=== PATIENT | female | born 1955 | race African-American/Black ===

== ENCOUNTER → 2021-06-12 09:24 | Outpatient (BNVA) | payer MEDICARE, MEDICAID, SELFPAY | PROVIDERS: PCP Internal Medicine; Visit Provider Psychiatry & Neurology Neurology | DX: F39 Unspecified mood [affective] disorder (principal); F09 Unspecified mental disorder due to known physiological condition; G47.00 Insomnia, unspecified | CPT/HCPCS: 99212 ==

== ENCOUNTER → 2021-09-11 09:32 | Outpatient (BNVA) | payer MEDICARE, MEDICAID, SELFPAY | PROVIDERS: PCP Internal Medicine; Visit Provider Psychiatry & Neurology Neurology | DX: G47.00 Insomnia, unspecified (principal); F39 Unspecified mood [affective] disorder; F09 Unspecified mental disorder due to known physiological condition | CPT/HCPCS: 99212 ==

== ENCOUNTER 2022-05-12 08:54 | Outpatient (REF) | payer MEDICARE, MEDICAID, SELFPAY ==
[2022-05-14 16:37] LABS: Homocysteine 8.7 umol/L (<10.4)
[2022-05-20 11:48] LABS: Vitamin D 25-OH, D2 <4 ng/mL; Vitamin D 25-OH, D3 67 ng/mL; Vitamin D 25-OH, Total 67 ng/mL (30-100)
== END 2022-05-12 08:55 | disposition home or self-care (01) ==
LOC: HO.10HDL 08:54
PROVIDERS: Visit Provider Psychiatry & Neurology Neurology
DX: F39 Unspecified mood [affective] disorder (principal); F09 Unspecified mental disorder due to known physiological condition; G47.00 Insomnia, unspecified
CPT/HCPCS: 36415; 82306; 83090; 99212

== ENCOUNTER 2023-05-13 08:11 | Outpatient (AMB) | payer OTHER, SELFPAY ==
--- NOTE | 2023-05-13 08:15 | MHC.OFFVIS ---
Intake Vital Signs 05/13/23 08:16 Height 5 ft 4 in Weight 148 lb 6 oz BMI 25.5 BP 138/70 Blood Pressure Location Lt brachial Position Sitting Respiration 15 Pulse 80 Pulse Source Palpation Intake Visit Reasons: 1 yr f/u appt - Confirmed Intake Note: Pt presents for one year follow up for cognitive disorder. 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 She is doing well cognitively. Mood is stable. she feels she sleeps too much 9-6am .she thinks remeron is making her sleepy. she likes to knit and has a caregiver that takes her around Previous history- she was initially seen by me on May 02 2021- she was seen for cognitive impairment and insomnia. The cognitive impairment started after her hospitalization for UTI in November 2020. Her EEG was normal MRI showed moderate white matter changes.she also had difficulty falling asleep and staying asleep. Her MMSE was 19/30 She had low Vit D 11 and high homocystiene . COUNTS INCLUDE 234 BEDS AT THE [facility] Medical History Hyperlipidemia Osteoporosis Chronic back pain GERD (gastroesophageal reflux disease) Diabetes HTN (hypertension) Cognitive disorder Insomnia Surgical History (Updated 05/13/23 @ 08:21 by Elaine Gibson CMA) Hx of foot surgery Family History Father CAD (coronary artery disease) Mother CAD (coronary artery disease) Social History Alcohol intake: never Patient Tobacco Use Status: Never used Tobacco Physical Exam Vital Signs: Last Vital Signs Pulse 80 12/14/23 08:16 Resp 15 05/13/23 08:16 BP 138/70 05/13/23 08:16 BMI result Body Mass Index 25.5 Const Other: Patient went upto 7 th grade in [place] and serbian is her second language General: cooperative and healthy appearing Nutritional Appearance: average body habitus Orientation/consciousness: patient oriented x3 Neuro General: patient oriented x3, gait normal, tone normal, moves all extremities and no focal motor deficits Motor exam (neuro): 5/5 motor strength present throughout Coordination: [id number] test normal Orientation What is the (year) (season) (date) (day) (month)?: year, season, date, day and month Where are we (state) (county) (town or city) (hospital) (floor)?: state, county, town or city, hospital/clinic and floor Registration Name of 3 unrelated objects clearly and slowly, then ask patient to repeat all 3 of them. (1st repeat determines score. Make sure they can repeat all three): object 1, object 2 and object 3 Attention & Calculation (CHOOSE ONE) Spell WORLD backwards (DLROW): 5 letters Recall Ask patient to repeat the 3 items from question #3.: object 1, object 2 and object 3 Language Show patient a wristwatch & ask what it is. Repeat for pencil.: watch and pencil Ask the patient to repeat the phrase 'No ifs, ands, or buts' after you.: correct Ask the patient to 'take a piece of paper with their right hand' 'fold paper in half' 'place paper on floor': take paper in right hand, fold paper in half and place paper on floor Print the sentence 'CLOSE YOUR EYES' on a piece. If patient actually closes eyes then score.: followed written direction Give patient a blank piece of paper & ask to write a sentence. Score if it contains a noun & verb.: sentence contains subject and verb Ask patient to copy figure of intersecting pentagons exactly. Score if all 10 angles & 2 intersects are included.: all 10 angles present & 2 are intersected Score Score: 30 Assessment & Plan Assessment & Plan (1) Mood disorder: Code(s): F39 - Unspecified mood [affective] disorder (2) Cognitive disorder: Code(s): F09 - Unspecified mental disorder due to known physiological condition (3) Insomnia: Code(s): G47.00 - Insomnia, unspecified Plan Decrease remeron 7.5mg qhs Vit D 5000units qd Folic acid 1mg qd Medications: Changed From mirtazapine (Remeron) 15 mg PO DAILY 90 tabs 4RF To mirtazapine 7.5 mg PO DAILY 30 tabs 6RF Coding Level of Care Code Est Pt Level 4 (11800) Diagnoses Mood disorder F39 Cognitive disorder F09 Insomnia G47.00
[2023-05-13 08:16] VITALS: BP 138/70; PULSE 80; RESP 15; BMI 25.5
== END 2023-05-13 08:42 | disposition home or self-care (01) ==
PROVIDERS: Visit Provider Psychiatry & Neurology Neurology
DX: F39 Unspecified mood [affective] disorder (principal); R41.89 Other symptoms and signs involving cognitive functions and awareness; G47.00 Insomnia, unspecified
CPT/HCPCS: 99214

== ENCOUNTER → 2023-05-13 08:11 | Outpatient (BNVA) | payer OTHER, SELFPAY | PROVIDERS: Visit Provider Psychiatry & Neurology Neurology | DX: F39 Unspecified mood [affective] disorder (principal); F09 Unspecified mental disorder due to known physiological condition; G47.00 Insomnia, unspecified | CPT/HCPCS: 99212 ==

== ENCOUNTER 2024-05-16 08:54 | Outpatient (AMB) | payer OTHER, SELFPAY ==
--- NOTE | 2024-05-16 08:58 | A.OFFVIS_ITS ---
Vital Signs 05/16/24 09:00 Height 5 ft 5 in Weight 141 lb 6 oz BMI 23.5 BP 117/70 Blood Pressure Location Lt brachial Position Sitting Pulse 64 Pulse Source Pulse Oximeter Pulse Oximetry (%) 98 Oxygen Delivery Method Room Air Intake Visit Reasons: 1 yr f/u -Cognitive disorder Intake Note: Pt is confuse on the mirtazapine she was taking 7.5 mg, pharmacy gave her 15 mg on February. 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 She is doing well cognitively. Mood is stable.she visited [facility] this summer and her family was surprised that she was doing well. she sleeps good. she likes to knit and has a caregiver that takes her around Previous history- she was initially seen by me on May 02 2021- she was seen for cognitive impairment and insomnia. The cognitive impairment started after her hospitalization for UTI in November 2020. Her EEG was normal MRI showed moderate white matter changes.she also had difficulty falling asleep and staying asleep. Her MMSE was 19/30 She had low Vit D 11 and high homocystiene . [facility], [facility] Medical History Hyperlipidemia Osteoporosis Chronic back pain GERD (gastroesophageal reflux disease) Diabetes HTN (hypertension) Cognitive disorder Insomnia Surgical History Hx of foot surgery Family History Father CAD (coronary artery disease) Mother CAD (coronary artery disease) Social History Alcohol intake: never Patient Tobacco Use Status: Never used Tobacco Physical Exam Vital Signs: Last Vital Signs Pulse 64 05/16/24 09:00 BP 117/70 05/16/24 09:00 Pulse Ox 98 05/16/24 09:00 Oxygen Delivery Method Room Air 05/16/24 09:00 BMI result Body Mass Index 23.5 Const Other: Patient went upto 7 th grade in [facility] and macedonian is her second language General: cooperative and healthy appearing Nutritional Appearance: average body habitus Orientation/consciousness: patient oriented x3 Neuro General: patient oriented x3, gait normal, tone normal, moves all extremities and no focal motor deficits Motor exam (neuro): 5/5 motor strength present throughout Coordination: [id number] test normal Assessment & Plan Assessment & Plan (1) Mood disorder: Code(s): F39 - Unspecified mood [affective] disorder (2) Cognitive disorder: Code(s): F09 - Unspecified mental disorder due to known physiological condition Category: Medical Plan Continue remeron 7.5mg qhs Vit D 5000units qd Folic acid 1mg qd F/U with Prmary Care Medications: Changed From mirtazapine 15 mg PO DAILY 90 tabs 4RF To mirtazapine 7.5 mg PO DAILY 90 tabs 4RF Coding Level of Care Code Est Pt Level 4 (14452) Diagnoses Mood disorder F39 Cognitive disorder F09
[2024-05-16 09:00] VITALS: BP 117/70; PULSE 64; O2SAT 98; BMI 23.5
--- OUTSIDE RECORDS SUMMARY | 2024-05-16 09:10 | XMS_ITS ---
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 Generated for Rodgeri yennifer/Nabila/eTransmitting on:?05/16/2024 09:10 AM EST
--- OUTSIDE RECORDS SUMMARY | 2024-05-16 09:10 | XMS_ITS ---
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 Generated for Printi ng/Catarinag/eTransmitting on:?05/16/2024 09:10 AM EST
--- OUTSIDE RECORDS SUMMARY | 2024-05-16 09:10 | XMS_ITS | Patient Health Record ---
Author Organization [facility] Address [address] [place] [address] Care Team Providers Care Assignment Desk Assistant Name Role Phone Candace Meek M.D Primary Care Provider Unavailable Kris Brooks Unavailable [phone] Allergies Allergen (clinical drug ingredient) Drug/Non Drug Allergy documented on EMR Reaction Allergy Type Onset Date Status aspirin Aspirin Unknown Drug Allergy Active Reason For Referral No Information Social History Tobacco Use: Social History Observation Description Date Details (start date - stop date) Never Smoker NA - NA Tobacco use other than smoking: Question Answer Notes Are you an other tobacco user? No Tobacco Control (Standard) Question Answer Notes Tobacco use: Nonsmoker Additional Findings: Tobacco non-user Current no nsmoker AUDIT-C (Standard) Question Answer Notes Did you have a drink containing alcohol in the p ast year? No Points 0 Interpretation Negative Encounters Encounter Location Date Provider Diagnosis [facility] [address] [place] [address] 02/03/2024 Kris Brooks [facility] [address] [place] [address] 05/11/2024 Kris Brooks Plan Of Treatment Next Appt Details Provider Name:Kris Brooks , 06/22/2024 10:00:00 AM, [address], [place], [address], Insurance Providers Payer Name Payer Address Payer Phone Subscriber Number Group Number Insured Name Patient Relationship to Insured Coverage Start Date Coverage End Date Medicare National Govt Svcs Inc [address] [facility] [place] contreras [phone] [id number] Gillian Rizo Self - patient is the insured [facility] [employer] Claims [address] [place] [id number] Gillian Rizo Self - patient is the insured Medical (General) History Medical History History ICD Code Arthritis Back,Hip,and Knee pain High Blood Pressure Osteoporosis Measles Mumps Surgical History Surgery Date(Month/Year) left foot 2021
--- OUTSIDE RECORDS SUMMARY | 2024-05-16 09:10 | XMS_ITS | Continuity of Care Document ---
Author Organization [facility] Adult Address [address] [place] [address]- Care Team Providers Care Venetian Blind Maker Name Role Phone Gvaiota ROBB, [place] Primary Care Physician Encounter [facility] Date(s): 03/16/24 - 04/15/[address] [address]- Encounter Type: Triage Allergies, Adverse Reactions, Alerts Substance Criticality Severity Reaction Reaction Severity Status aspirin Active Immunizations Given and Recorded Vaccine Date Status Refusal Reason influenza virus vaccine, inactivated 02/03/24 Hay rded influenza virus vaccine, inactivated 03/27/23 Hay rded influenza virus vaccine, inactivated 02/08/22 Hay rded influenza virus vaccine, inactivated 1 03/10/21 Gi kimberly influenza virus vaccine, inactivated 2 02/26/18 Gi kimberly influenza virus vaccine, inactivated 3 03/05/17 Gi kimberly influenza virus vaccine, inactivated 4 03/05/17 Gi kimberly influenza virus vaccine, inactivated 5 03/31/16 Gi kimberly influenza virus vaccine, inactivated 04/10/15 Give n influenza virus vaccine, inactivated 03/03/15 Hay rded influenza virus vaccine, inactivated 02/14/14 Give n influenza virus vaccine, inactivated 6 04/04/12 Gi kimberly influenza virus vaccine, inactivated 7 02/28/10 Gi kimberly RSV vaccine preF3, recombinant 07/29/23 Recorded SARS-CoV-2(COVID-19)mRNA-LNP vac(ekn449) 05/01/23 Recorded [id number] 12y+ bivalent booster vax 06/06/22 Recorded pneumococcal 13-valent vaccine 06/15/21 Recorded SARS-CoV-2 (COVID-19) mRNA-1273 vaccine 05/20/21 R ecorded SARS-CoV-2 (COVID-19) mRNA-1273 vaccine 08/14/20 R ecorded SARS-CoV-2 (COVID-19) mRNA-1273 vaccine 07/17/20 R ecorded Influenza Virus Vaccine (oldterm) 02/26/20 Recorde d Influenza Virus Vaccine (oldterm) 02/26/19 Recorde d Influenza Virus Vaccine (oldterm) 02/15/19 Recorde d zoster vaccine, inactivated 04/02/19 Recorded zoster vaccine, inactivated 11/17/18 Recorded Typhoid Vaccine, Inactivated 12/02/17 Given Typhoid Vaccine, Inactivated 04/16/14 Given tetanus/diphtheria/pertussis, acel(Tdap) 08/06/16 Given Yellow Fever Vaccine 04/16/14 Given Influenza Inactive (IM) (oldterm) 8 04/24/11 Given Varicella Virus Vaccine 08/13/09 Recorded tetanus-diphtheria toxoids (Td) 08/13/09 Recorded 1Result Comment: [facility] [id number] [facility] 6Admin Note: [facility] 11/30/2011 7Admin Note: [facility] 01/07/10 8Admin Note: vis Medications diclofenac 1% topical gel = 4 Gm, Topically, 4 times a day, not to exceed 16 grams/day/single joint of lower extremities, # 100 Gm, 0 Refills, Maintenance, 03/06/24 3:32:00 PM EDT, Gel, [facility], Partial fill upon patient request if the prescription is for a schedule II opioid drug., 163, cm, 01/17/24 8:57:00 EDT, Height Start Date: 03/06/24 Status: Ordered Quantity: 100.0 Unit: g Repeat number: 1 folic acid 0.8 mg oral tablet 1 tablet = 0.8 mg, By Mouth, Daily, 0 Refills, Maintenance, 11/25/21 3:58:00 PM EDT, Partial fill upon patient request if the prescription is for a schedule II opioid drug. Start Date: 11/25/21 Status: Ordered Repeat number: 1 Hospital Bed See Instructions, # 1 each, Maintenance, USE DIRECTED, DX CHRONIC BACK PAIN, [facility] [phone], 12/18/22 3:28:00 PM EDT, Supply Start Date: 12/18/22 Status: Ordered Quantity: 1.0 Unit: each Repeat number: 1 hydrochlorothiazide-lisinopril 25 mg-20 mg oral tablet 1 tablet, By Mouth, Daily, # 90 tablet, 2 Refills, Maintenance, 09/21/23 3:06:00 PM EDT, [facility]/pharmacy #1972, 1 tablet By Mouth Daily, 163, cm, 05/12/23 8:21:00 EST, Height, 65.8, kg, 01/13/22 10:45:00EDT, Dry Weight Start Date: 09/21/23 Status: Ordered Quantity: 90.0 Unit: tablet Repeat number: 3 lisinopril 10 mg oral tablet 1, tablet, By Mouth, Daily, WITH HCTZ/LISINOPRIL., # 90 tablet, Refills 2, Tot. Refills 2, Maintenance, 09/21/23 3:06:00 PM EDT, Route to Pharmacy Electronically, [facility]/pharmacy #[id number], 163, cm, :21:00 EST, Height, 65.8, kg, 01/13/22 10:45:00 EDT, Dry Weight Start Date: 09/21/23 Status: Ordered Quantity: 90.0 Unit: tablet Repeat number: 3 loratadine 10 mg oral tablet 10 mg, 1, tablet, By Mouth, Daily, # 30 tablet, Refills 0, Maintenance, 12/14/20 11:15:00 AM EDT, Partial fill upon patient request if the prescription is for a schedule II opioid drug. Start Date: 12/14/20 Status: Ordered Quantity: 30.0 Unit: tablet Repeat number: 1 Lumbar Sacral support with overlapping abdominal belt 10' height: Dx: chronic back pain Lumbar Sacral support with overlapping abdominal belt 10' height: Dx: chronic back pain, See Instructions, # 1 each, Refills 0, Tot. Refills 0, Maintenance, Daily, 03/09/23 2:09:00 PM EDT, Lumbar Sacral support with overlapping abdominal belt 10' height: Dx: chronic back pain; [facility] [phone], Compound Start Date: 03/09/23 Status: Ordered Quantity: 1.0 Unit: each Repeat number: 1 mefloquine 250 mg oral tablet 1 tablet = 250 mg, By Mouth, Every 7 days, start two weeks before travel, continue weekly during travel and continue for 4 weeks after travel, # 10 tablet, 0 Refills, Maintenance, 03/06/24 3:32:00 PM EDT, [id number], Partial fill upon patient request if the prescription is for a schedule II o pioid drug., 163, cm, 01/17/24 8:57:00 EDT, Height Start Date: 03/06/24 Status: Ordered Quantity: 10.0 Unit: tablet Repeat number: 1 mirtazapine 15 mg oral tablet 1 tablet = 15 mg, By Mouth, Daily at bedtime, # 30 tablet, 0 Refills, Maintenance, 05/06/21 4:50:00 PM EST, Tablet, Partial fill upon patient request if the prescription is for a schedule II opioid drug. Start Date: 05/06/21 Status: Ordered Quantity: 30.0 Unit: tablet Repeat number: 1 omeprazole 20 mg oral enteric coated capsule 1 capsule, By Mouth, Daily, # 90 capsule, 1 Refills, Maintenance, 03/16/24 12:05:00 PM EDT, [facility], 163, cm, 01/17/24 8:57:00 EDT, Height Start Date: 03/16/24 Status: Ordered Quantity: 90.0 Unit: capsule Repeat number: 2 pravastatin 20 mg oral tablet 1, tablet, By Mouth, Daily, # 90 tablet, Refills 1, Tot. Refills 1, Maintenance, 03/16/24 12:05:00 PM EDT, Route to Pharmacy Electronically, [facility], 163, cm, 01/17/24 8:57:00 EDT, Height Start Date: 03/16/24 Status: Ordered Quantity: 90.0 Unit: tablet Repeat number: 2 Vitamin D3 oral tablet 1 tablet = 10 mcg, By Mouth, Daily, # 30 tablet, 0 Refills, Maintenance, 01/13/22 10:45:00 AM EDT, Tablet, Partial fill upon patient request if the prescription is for a schedule II opioid drug. Start Date: 01/13/22 Status: Ordered Quantity: 30.0 Unit: tablet Repeat number: 1 Problem List Condition Confirmation Course Effective Dates Status H ealth Status Informant Chronic back pain greater than 3 months duration Confirmed Active Family history of systemic lupus erythematosus Confirmed Active GERD - Gastro-esophageal reflux disease Confirmed Active Hot flashes Confirmed Active Hyperlipidemia Confirmed Active Hypertension Confirmed Active Mood disorder Confirmed Active Osteoporosis Confirmed 2013 Active Prediabetes Confirmed Active Social History Social History Type Response Smoking Status Never smoker entered on: 08/01/15 Sex Sex Representation Female (finding) Patient Care team information Care Team Personnel Name: Nubia Donnelly RN Position: [facility] RN Member Role: Primary Care Nurse Name: Candace Meek MD Position: [facility] Physician - Primary Care Member Role: PCP Address: [address] [place] [address] Telecom: Care Team Related Persons Name: ISHMAEL DORMAN Name: JAMI SMITH Insurance Providers Guarantor name: DIMITRI DORMAN Health Plan Information #: 1 Payer: HEMANTH Member Number: NA Policy Number: NA Group Number: NA
--- OUTSIDE RECORDS SUMMARY | 2024-05-16 09:11 | XMS_ITS | Continuity of Care Document ---
Author Organization [facility] Address [address] [place] [address]- Care Team Providers Care Tableau Report Developer Name Role Phone Gaviota ROBB, [place] Primary Care Physician Encounter [facility] Date(s): 03/20/24 - 04/19/24 [facility] [address] [place] [address]- Encounter Type: Triage Allergies, Adverse Reactions, Alerts [...] RSV vaccine preF3, recombinant 07/29/23 Recorded SARS-CoV-2(COVID-19)mRNA-LNP vac([id number]) 05/01/23 Recorded [id number] 12y+ bivalent booster vax 06/06/22 Recorded pneumococcal [...] tetanus-diphtheria toxoids (Td) 08/13/09 Recorded 1Result Comment: [facility] [id number] 2Admin Note: [facility] 3Admin Note: [facility] 4Admin [...] USE DIRECTED, DX CHRONIC BACK PAIN, [facility] [phone], 12/18/22 3:28:00 PM EDT, Supply Start Date: 12/18/22 Status: Ordered Quantity: 1.0 Unit: each Repeat number: 1 hydrochlorothiazide-lisinopril 25 mg-20 mg oral tablet 1 tablet, By Mouth, Daily, # 90 tablet, 2 Refills, Maintenance, 09/21/23 3:06:00 PM EDT, [facility]/pharmacy #1972, 1 tablet By Mouth Daily, 163, cm, 05/12/23 8:21:00 EST, Height, 65.8, kg, 01/13/22 10:45:00EDT, Dry Weight Start Date: 09/21/23 Status: Ordered Quantity: 90.0 Unit: tablet Repeat number: 3 lisinopril 10 mg oral tablet 1, tablet, By Mouth, Daily, WITH HCTZ/LISINOPRIL., # 90 tablet, Refills 2, Tot. Refills 2, Maintenance, 09/21/23 3:06:00 PM EDT, Route to Pharmacy Electronically, [facility]/pharmacy #1972, 163, cm, :21:00 EST, Height, [...] height: Dx: chronic back pain; [facility] [phone], Compound Start Date: 03/09/23 Status: Ordered Quantity: 1.0 Unit: each Repeat number: 1 mefloquine 250 mg oral tablet 1 tablet = 250 mg, By Mouth, Every 7 days, start two weeks before travel, continue weekly during travel and continue for 4 weeks after travel, # 10 tablet, 0 Refills, Maintenance, 03/06/24 3:32:00 PM EDT, [facility]/pharmacy #1972, Partial fill upon patient request if [...] Team Personnel Name: Nubia Donnelly RN Position: [facility] RN Member Role: Primary Care Nurse Name: Candace Meek MD Position: [facility] Physician - Primary Care Member Role: PCP Address: [address] [place] [id number] Telecom: Care Team Related Persons Name: ISHMAEL DORMAN Name: JAMI SMITH Insurance Providers Guarantor name: DIMITRI DORMAN Health Plan Information #: 1 Payer: NA Member Number: NA Policy Number: NA Group Number: NA
--- OUTSIDE RECORDS SUMMARY | 2024-05-16 09:11 | XMS_ITS | Continuity of Care Document ---
Author Organization [facility] Adult Address [address] [place] [address]- Care Team Providers Care Promotional Demonstrator Name Role Phone Gaviota ROBB, [place] Primary Care Physician Encounter [facility] Date(s): 03/20/24 - 04/19/24 [facility] [address] [place] [id number] Encounter Type: Triage Allergies, Adverse Reactions, Alerts [...] RSV vaccine preF3, recombinant 07/29/23 Recorded SARS-CoV-2(COVID-19)mRNA-LNP vac([id number]) 05/01/23 Recorded [id number] 12y+ bivalent booster vax 06/06/22 Recorded pneumococcal [...] tetanus-diphtheria toxoids (Td) 08/13/09 Recorded 1Result Comment: [facility] [id number] [facility] 3[facility] 4Admin [...] USE DIRECTED, DX CHRONIC BACK PAIN, [facility] [phone], 12/18/22 3:28:00 PM EDT, Supply Start Date: 12/18/22 Status: Ordered Quantity: 1.0 Unit: each Repeat number: 1 hydrochlorothiazide-lisinopril 25 mg-20 mg oral tablet 1 tablet, By Mouth, Daily, # 90 tablet, 2 Refills, Maintenance, 09/21/23 3:06:00 PM EDT, [facility]/pharmacy #[id number], 1 tablet By Mouth Daily, 163, cm, 05/12/23 8:21:00 EST, Height, 65.8, kg, 01/13/22 10:45:00EDT, Dry Weight Start Date: 09/21/23 Status: Ordered Quantity: 90.0 Unit: tablet Repeat number: 3 lisinopril 10 mg oral tablet 1, tablet, By Mouth, Daily, WITH HCTZ/LISINOPRIL., # 90 tablet, Refills 2, Tot. Refills 2, Maintenance, 09/21/23 3:06:00 PM EDT, Route to Pharmacy Electronically, [facility]/pharmacy #[id number], 163, cm, :21:00 EST, [...] height: Dx: chronic back pain; [facility] [phone], Compound Start Date: 03/09/23 Status: Ordered Quantity: 1.0 Unit: each Repeat number: 1 mefloquine 250 mg oral tablet 1 tablet = 250 mg, By Mouth, Every 7 days, start two weeks before travel, continue weekly during travel and continue for 4 weeks after travel, # 10 tablet, 0 Refills, Maintenance, 03/06/24 3:32:00 PM EDT, [facility]/pharmacy #[id number], Partial fill upon patient [...] Team Personnel Name: Nubia Donnelly RN Position: [facility] RN Member Role: Primary Care Nurse Name: Candace Meek MD Position: [facility] Physician - Primary Care Member Role: PCP Address: [address] [place] [id number] Telecom: Care Team Related Persons Name: ISHMAEL DORMAN Name: JAMI SMITH Insurance Providers Guarantor name: DIMITRI DORMAN Health Plan Information #: 1 Payer: NA Member Number: NA Policy Number: NA Group Number: NA
== END 2024-05-16 10:06 | disposition home or self-care (01) ==
PROVIDERS: PCP Internal Medicine; Visit Provider Psychiatry & Neurology Neurology
DX: F39 Unspecified mood [affective] disorder (principal); R41.89 Other symptoms and signs involving cognitive functions and awareness
CPT/HCPCS: 99214

== ENCOUNTER → 2024-05-16 08:54 | Outpatient (BNVA) | payer OTHER, SELFPAY | PROVIDERS: PCP Internal Medicine; Visit Provider Psychiatry & Neurology Neurology | DX: F39 Unspecified mood [affective] disorder (principal); F09 Unspecified mental disorder due to known physiological condition | CPT/HCPCS: 99212 ==